=== PATIENT | female | born 1935 | race Caucasian/White ===

== ENCOUNTER → 2017-02-05 | Outpatient (CLI) | payer MEDICARE, OTHER ==
[~2017-02-05] MED LIST: ATOR1TAB21 PO; CALC600T27 PO; CYCL10TA PO; ICAPCAP PO; LISI40TAB PO; LORA10TA2 PO; PYRI100T2 PO; VITA10006 PO; VITA100066 PO
--- NOTE | 2017-02-05 10:15 | REPMRS ---
Patient History The patient states she had a clinical breast exam in November 2016. Patient is postmenopausal and has history of breast cancer at age 75. Malignant lumpectomy of the left breast, 2011. Radiation therapy of the left breast, 2010. Digital Mammo Screening Bilat: February 05, 2017 - Exam #: [id number] Bilateral CC and MLO view(s) were taken. Technologist: Iva Zaragoza, Technologist Prior study comparison: December 28, 2015, bilateral digital mammo screening bilat performed at [facility]. December 09, 2014, bilateral digital mammo screening bilat performed at [facility]. October 06, 2013, bilateral digital mammo screening bilat performed at [facility]. FINDINGS: The breast tissue is heterogeneously dense. This may lower the sensitivity of mammography. Nodular opacities previously noted in each breast are again seen and remain stable. There is a moderate amount of heterogeneously dense fibroglandular tissue which is fairly symmetric. There is no interval development of dominant mass, architectural distortion, or clustered microcalcification typical of malignancy. There has been no change in the appearance of the mammogram from the prior studies. ASSESSMENT: BI-RADS/ACR category 1 mammogram. Negative. Recommendation Routine screening mammogram of both breasts in 1 year (for women over age 40). This mammogram was interpreted with the aid of an FDA-approved computer-aided dectection system. Electronically Signed By: Peter Rucker MD 02/05/17 [id number]
== END ==
LOC: M RAD 09:30
PROVIDERS: ATTEND Nurse Practitioner Family
DX: Z12.31 Encounter for screening mammogram for malignant neoplasm of breast (principal); Z78.0 Asymptomatic menopausal state

== ENCOUNTER → 2017-05-31 | Outpatient (REF) | payer MEDICARE, OTHER ==
[2017-05-31 17:14] LABS: MEAN CORPUSCULAR HEMOGLOBIN 28.4 pg (27.0-33.0); MEAN CORPUSCULAR HGB CONC 32.1 g/dl (32.0-36.5); MEAN CORPUSCULAR VOLUME 88.7 fl (80.0-96.0); RED CELL DISTRIBUTION WIDTH 14.3 % (11.5-14.5); WHITE BLOOD COUNT 4.7 10^3/uL (4.0-10.0)
[2017-05-31 18:33] LABS: ALBUMIN 3.8 GM/DL (3.2-5.2); ALBUMIN/GLOBULIN RATIO 1.31 (1.00-1.93); BILIRUBIN,TOTAL 0.5 MG/DL (0.2-1.0); CREATININE FOR GFR 1.19 MG/DL (0.55-1.02); GLOMERULAR FILTRATION RATE 46.6 (>39); POTASSIUM SERUM 4.3 MEQ/L (3.5-5.1); TOTAL PROTEIN 6.7 GM/DL (6.4-8.2)
== END ==
LOC: M SFHCCLAY 10:28
PROVIDERS: ATTEND Nurse Practitioner Family
DX: I10 Essential (primary) hypertension (principal); K21.9 Gastro-esophageal reflux disease without esophagitis; E78.4 Other hyperlipidemia; E55.9 Vitamin D deficiency, unspecified

== ENCOUNTER 2017-06-29 11:40 | Emergency (ER) | payer MEDICARE, OTHER ==
[~2017-06-29] VITALS: Ht 172.7 cm; Wt 70.5 kg
[2017-06-29] MEDS ORDERED: OMEP40CA2 (12:05)
[2017-06-29 12:32] LABS: BASO % 0.5 % (0.0-1.0); EOS % 0.7 % (0.0-3.0); IMMATURE GRANULOCYTE % 0.2 % (0-0); LYMPH # 0.9 10^3/uL (1.5-4.5); LYMPH % 15.7 % (24.0-44.0); MEAN CORPUSCULAR HEMOGLOBIN 28.5 pg (27.0-33.0); MEAN CORPUSCULAR HGB CONC 32.8 g/dl (32.0-36.5); MEAN CORPUSCULAR VOLUME 86.8 fl (80.0-96.0); MONO # 0.4 10^3/uL (0.0-0.8); MONO % 7.2 % (0.0-5.0); NEUTROPHILS # 4.3 10^3/uL (1.8-7.7); NEUTROPHILS % 75.7 % (36.0-66.0); PLATELET COUNT, AUTOMATED 211 10^3/uL (150-450); RED CELL DISTRIBUTION WIDTH 14.6 % (11.5-14.5); WHITE BLOOD COUNT 5.7 10^3/uL (4.0-10.0)
--- NOTE | 2017-06-29 12:35 | REP ---
CT Head without contrast HISTORY: Fall COMPARISON: None Areas of decreased attenuation are present in the periventricular white matter. This represents small-vessel ischemic disease. There is no intraparenchymal hemorrhage, acute infarct, mass or midline shift. The ventricular system and cortical sulci are dilated consistent with minimal volume loss. There is no extracerebral collection. There is no extra cerebral collection. There is no fracture. The visualized sinuses are clear. IMPRESSION: 1. Small vessel ischemic disease. 2. Minimal volume loss. Signed by Dontae Esquivel MD 06/29/2017 12:27 P
[2017-06-29 12:54] LABS: CALCIUM LEVEL 9.5 MG/DL (8.8-10.2); CREATININE FOR GFR 1.15 MG/DL (0.55-1.02); GLOMERULAR FILTRATION RATE 48.5 (>39); POTASSIUM SERUM 3.9 MEQ/L (3.5-5.1)
--- NOTE | 2017-06-29 13:01 | REP ---
MAXILLOFACIAL CT WITHOUT CONTRAST: HISTORY: Fall. The sinuses are clear. The ostiomeatal units are patent. The middle and inferior nasal turbinates are partially paradoxical. The nasal septum is midline. The cribriform plate, medial rainey of the orbits and optic canals are intact. There is aeration of the left anterior clinoid process. The carotid canals form a segment of the posterolateral rainey of the sphenoid sinus. The sphenoid sinus septa insert into the internal carotid canal rainey. Degenerative change is present in the temporomandibular joints. There is no fracture. IMPRESSION: There is no acute or chronic sinusitis. Signed by Dontae Esquivel MD 06/29/2017 01:21 P
[2017-06-29 13:19] VITALS: BP 177/86
--- NOTE | 2017-06-30 08:29 | ECGEPIP ---
Stationary ECG Study [facility] - ED Test Date: 2017-06-29 Pat Name: CHRISTIANO GUY Department: Room: - Gender: F Publication Designer: issac : [id number] Requested By: TEOFILO Mendes Order Number: [id number] Reading MD: Andie Llamas Measurements Intervals [place] Rate: 78 P: -34 UT: 159 QRS: 28 QRSD: 87 T: 7 QT: 385 QTc: 439 Interpretive Statements SINUS RHYTHM POSSIBLE RIGHT VENTRICULAR CONDUCTION DELAY NSTTW ABNORMALITY INCREASED RATE 06/05/16 Electronically Signed On 06-30-2017 8:28:50 EST by Andie Llamas
== END 2017-06-29 13:20 | disposition home or self-care (01) ==
LOC: EDBD 11:40 → EDSEX 11:40 → M ED 11:40
DX: S00.81XA Abrasion of other part of head, initial encounter (principal); W01.0XXA Fall on same level from slipping, tripping and stumbling without subsequent striking against object, initial encounter; Y92.512 Supermarket, store or market as the place of occurrence of the external cause; Y93.89 Activity, other specified; Y99.8 Other external cause status; R90.82 White matter disease, unspecified; I10 Essential (primary) hypertension; E78.00 Pure hypercholesterolemia, unspecified; Z79.899 Other long term (current) drug therapy

== ENCOUNTER → 2017-08-31 | Outpatient (REF) | payer MEDICARE, OTHER | LOC: M SFHCCLAY 11:15 | DX: N39.0 Urinary tract infection, site not specified (principal) | CPT/HCPCS: 87186 ==

== ENCOUNTER → 2018-01-28 | Outpatient (REF) | payer MEDICARE, OTHER ==
[2018-01-28 17:44] LABS: ANION GAP 11 MEQ/L (8-16); BLOOD UREA NITROGEN 31 MG/DL (7-18); CALCIUM LEVEL 9.1 MG/DL (8.8-10.2); CARBON DIOXIDE LEVEL 26 MEQ/L (21-32); CHLORIDE LEVEL 106 MEQ/L (98-107); CREATININE FOR GFR 1.24 MG/DL (0.55-1.30); GLOMERULAR FILTRATION RATE 44.3 (>32); GLUCOSE, FASTING 91 MG/DL (70-100); POTASSIUM SERUM 4.8 MEQ/L (3.5-5.1); SODIUM LEVEL 143 MEQ/L (136-145)
== END ==
LOC: M SFHCCLAY 10:09
DX: I10 Essential (primary) hypertension (principal)
CPT/HCPCS: 80048

== ENCOUNTER → 2018-02-07 | Outpatient (CLI) | payer MEDICARE, OTHER | LOC: M RAD 08:55 | DX: Z12.31 Encounter for screening mammogram for malignant neoplasm of breast (principal); N63.11 Unspecified lump in the right breast, upper outer quadrant | CPT/HCPCS: 77067 ==

== ENCOUNTER → 2018-08-15 | Outpatient (REF) | payer MEDICARE, OTHER ==
[~2018-08-15] MED LIST changes: -LORA10TA2 PO; +LORA10TA3 PO; +OMEP40CA2
== END ==
LOC: M SFHCCLAY 14:33 → EEVIPCON 14:33
PROVIDERS: ATTEND Nurse Practitioner Family
DX: I10 Essential (primary) hypertension (principal); N39.0 Urinary tract infection, site not specified
CPT/HCPCS: 81002; 87088; 87186; G0463

== ENCOUNTER → 2019-01-01 | Outpatient (REF) | payer MEDICARE, OTHER ==
[~2019-01-01] MED LIST changes: +LISI40TA52 PO; -LISI40TAB PO
[2019-01-01 11:37] LABS: HEMATOCRIT 40.4 % (36.0-47.0); HEMOGLOBIN 12.8 g/dl (12.0-15.5); MEAN CORPUSCULAR HEMOGLOBIN 28.1 pg (27.0-33.0); MEAN CORPUSCULAR HGB CONC 31.7 g/dl (32.0-36.5); MEAN CORPUSCULAR VOLUME 88.6 fl (80.0-96.0); PLATELET COUNT, AUTOMATED 196 10^3/uL (150-450); RED BLOOD COUNT 4.56 10^6/uL (4.00-5.40); WHITE BLOOD COUNT 5.5 10^3/uL (4.0-10.0)
[2019-01-01 11:44] LABS: ALBUMIN 3.8 GM/DL (3.2-5.2); BILIRUBIN,TOTAL 0.6 MG/DL (0.2-1.0); CALCIUM LEVEL 8.9 MG/DL (8.8-10.2); CHOLESTEROL RISK RATIO 3.191 (<5); CREATININE FOR GFR 1.28 MG/DL (0.55-1.30); GLOMERULAR FILTRATION RATE 42.6 (>32); POTASSIUM SERUM 4.2 MEQ/L (3.5-5.1)
[2019-01-01 11:52] LABS: TOTAL 25(OH) VITAMIN D 33.9 NG/ML (30.0-100.0)
== END ==
LOC: M SFHCCLAY 08:22
PROVIDERS: ATTEND Nurse Practitioner Family
DX: I10 Essential (primary) hypertension (principal); E78.49 Other hyperlipidemia; E55.9 Vitamin D deficiency, unspecified; K21.9 Gastro-esophageal reflux disease without esophagitis
CPT/HCPCS: 69210; 80053; 80061; 82306; 85027; G0463

== ENCOUNTER → 2019-02-10 | Outpatient (CLI) | payer MEDICARE, OTHER ==
[~2019-02-10] MED LIST changes: -OMEP40CA2; +OMEP40CA97; -PYRI100T2 PO; +VITA100T82 PO
--- NOTE | 2019-02-10 11:50 | REPMRS ---
Patient History The patient states she had a clinical breast exam in January 2019.Malignant lumpectomy of the left breast, 2010. Radiation therapy of the left breast, 2010. 3D TOMOSYNTHESIS WAS PERFORMED. Digital Mammo Screening Bilat: February 10, 2019 - Exam #: [id number] Bilateral CC and MLO view(s) were taken. Technologist: Iva Zaragoza, Technologist Prior study comparison: February 07, 2018, bilateral digital mammo screening bilat performed at [facility]. February 05, 2017, bilateral digital mammo screening bilat performed at [facility]. FINDINGS: The breast tissue is heterogeneously dense. This may lower the sensitivity of mammography. There is no evidence of cancer on this mammogram. There is a stable nodule in each breast compared to multiple prior exams. No significant changes when compared with prior studies. Assessment: BI-RADS/ACR category 2 mammogram. Benign Findings. Recommendation Routine screening mammogram of both breasts in 1 year (for women over age 40). This mammogram was interpreted with the aid of an FDA-approved computer-aided dectection system. Electronically Signed By: Wu Butt MD 02/10/19 [id number]
== END ==
LOC: M RAD 11:01
PROVIDERS: ATTEND Nurse Practitioner Family
DX: Z12.31 Encounter for screening mammogram for malignant neoplasm of breast (principal)

== ENCOUNTER → 2019-05-12 | Outpatient (REF) | payer MEDICARE, OTHER ==
[~2019-05-12] MED LIST changes: +PYRI100T2 PO; -VITA100T82 PO
== END ==
LOC: M SFHCCLAY 11:11
PROVIDERS: ATTEND Family Medicine
DX: N39.0 Urinary tract infection, site not specified (principal)
CPT/HCPCS: 81002; 87088; 87186; G0463

== ENCOUNTER → 2019-08-29 | Outpatient (REF) | payer MEDICARE, OTHER ==
[~2019-08-29] MED LIST changes: -PYRI100T2 PO; +VITA100T82 PO
== END ==
LOC: M SFHCCLAY 11:16
PROVIDERS: ATTEND Nurse Practitioner Family
DX: R35.0 Frequency of micturition (principal)

== ENCOUNTER → 2019-09-12 | Outpatient (REF) | payer MEDICARE, OTHER ==
[2019-09-12 13:50] LABS: AMORPHOUS SEDIMENT SMALL (NEGATIVE); APPEARANCE, URINE HAZY (CLEAR); BACTERIA, URINE AUTO 1+ (NEGATIVE); BILIRUBIN, URINE AUTO NEGATIVE (NEGATIVE); BLOOD, URINE BLOOD NEGATIVE (NEGATIVE); COLOR, URINE YELLOW (YELLOW); GLUCOSE, URINE (UA) AUTO NEGATIVE (NEGATIVE); KETONE, URINE AUTO NEGATIVE (NEGATIVE); LEUKOCYTE ESTERASE, URINE AUTO TRACE (NEGATIVE); MUCUS, URINE SMALL (NEGATIVE); NITRITE, URINE AUTO NEGATIVE (NEGATIVE); PROTEIN, URINE AUTO NEGATIVE (NEGATIVE); RBC, URINE AUTO 1 /HPF (0-3); SPECIFIC GRAVITY URINE AUTO 1.018 (1.002-1.035); SQUAMOUS EPITHELIAL CELL UR AU 3 /HPF (0-6); TRANSITIONAL EPITHELIAL AUTO 1 /HPF; UROBILINOGEN, URINE AUTO 0.2 mg/dL (0.0-2.0); WBC, URINE AUTO 2 /HPF (0-3)
== END ==
LOC: M SMT 13:30
PROVIDERS: ATTEND Nurse Practitioner Women's Health
DX: N39.0 Urinary tract infection, site not specified (principal)

== ENCOUNTER → 2020-01-13 | Outpatient (REF) | payer MEDICARE, OTHER ==
[~2020-01-13] MED LIST changes: +CYCL-707 PO; -CYCL10TA PO
[2020-01-13 12:03] LABS: HEMATOCRIT 40.9 % (36.0-47.0); HEMOGLOBIN 13.1 g/dl (12.0-15.5); MEAN CORPUSCULAR HEMOGLOBIN 29.1 pg (27.0-33.0); MEAN CORPUSCULAR VOLUME 90.9 fl (80.0-96.0); PLATELET COUNT, AUTOMATED 187 10^3/uL (150-450); WHITE BLOOD COUNT 5.3 10^3/uL (4.0-10.0)
[2020-01-13 12:47] LABS: ALBUMIN 3.8 GM/DL (3.2-5.2); BILIRUBIN,TOTAL 0.5 MG/DL (0.2-1.0); CALCIUM LEVEL 8.9 MG/DL (8.8-10.2); CHOLESTEROL RISK RATIO 3.057 (<5); CREATININE FOR GFR 1.26 MG/DL (0.55-1.30); GLOMERULAR FILTRATION RATE 43.3 (>32); POTASSIUM SERUM 4.3 MEQ/L (3.5-5.1); TOTAL PROTEIN 6.5 GM/DL (6.4-8.2)
[2020-01-13 12:54] LABS: TOTAL 25(OH) VITAMIN D 40.4 NG/ML (30.0-100.0)
== END ==
LOC: M SFHCCLAY 08:05
PROVIDERS: ATTEND Nurse Practitioner Family
DX: K21.9 Gastro-esophageal reflux disease without esophagitis (principal); I10 Essential (primary) hypertension; E78.49 Other hyperlipidemia; E55.9 Vitamin D deficiency, unspecified

== ENCOUNTER → 2020-02-17 | Outpatient (CLI) | payer MEDICARE, OTHER ==
--- NOTE | 2020-02-17 15:20 | REPMRS ---
Patient History Malignant lumpectomy of the left breast, 2011. Radiation therapy of the left breast, 2010. VOLPARA DENSITY C. 3D TOMOSYNTHESIS WAS PERFORMED. Digital Woman Screen Mammo: February 17, 2020 - Exam #: [id number] Bilateral CC and MLO view(s) were taken. Technologist: Monika Maradiaga, Technologist Prior study comparison: February 10, 2019, bilateral digital mammo screening bilat, performed at [facility]. February 07, 2018, bilateral digital mammo screening bilat, performed at [facility]. FINDINGS: The breast tissue is heterogeneously dense. This may lower the sensitivity of mammography. There is a fairly symmetric fibroglandular pattern in both breasts. There has been no interval development of masses, areas of architectural distortion or clusters of microcalcifications typical of malignancy. No change in nodular opacity posteromedially on the left. No significant changes when compared with prior studies. Assessment: BI-RADS/ACR category 2 mammogram. Benign Findings. Recommendation Routine screening mammogram of both breasts in 1 year (for women over age 40). This mammogram was interpreted with the aid of an FDA-approved computer-aided dectection system. Electronically Signed By: Wu Butt MD 02/17/20 [id number]
--- NOTE | 2020-02-26 10:36 | DEXA ---
AP SPINE L1 - L4 1.271 0.8 2.6 LT FEMUR TOTAL 1.059 0.4 2.5 LT NECK 0.906 -1.0 1.3 RT FEMUR TOTAL 0.993 -0.1 2.0 RT NECK 0.855 -1.3 0.9 TOTAL BODY TOTAL OTHER COMMENTS: Normal bone densitometry of the spine. There is low bone density of hips. The increased density of the spine does represent a significant change. The increased density of the left hip does not represent significant change. The decreased density of the right hip does represent a significant change. The density of the spine has increased 7.0% since the initial exam on 12/01/2004. The increased 8.4% since the most recent exam on 11/04/2012. The density of the left hip has increased 1.7% since the initial exam on 12/01/2004. The density of the left hip has increased 1.0% since the most recent exam on 11/04/2012. The density of the right hip has increased 0.5% since the initial exam on 12/01/2004. The density of the right hip has decreased 2.5% since the most recent exam on 11/04/2012. FOLLOW-UP: Recommendation for the next bone density exam: 2 years. COSME
== END ==
LOC: M WHC 12:59
PROVIDERS: ATTEND Nurse Practitioner Family
DX: Z12.31 Encounter for screening mammogram for malignant neoplasm of breast (principal); Z78.0 Asymptomatic menopausal state

== ENCOUNTER → 2020-11-24 | Outpatient (REF) | payer MEDICARE, OTHER ==
[2020-11-24 11:52] LABS: HEMATOCRIT 42.5 % (36.0-47.0); HEMOGLOBIN 13.5 g/dl (12.0-15.5); MEAN CORPUSCULAR HGB CONC 31.8 g/dl (32.0-36.5); MEAN CORPUSCULAR VOLUME 91.4 fl (80.0-96.0); PLATELET COUNT, AUTOMATED 209 10^3/uL (150-450); RED BLOOD COUNT 4.65 10^6/uL (4.00-5.40); WHITE BLOOD COUNT 6.1 10^3/uL (4.0-10.0)
[2020-11-24 14:01] LABS: ALBUMIN 3.8 GM/DL (3.2-5.2); BILIRUBIN,TOTAL 0.5 MG/DL (0.2-1.0); CALCIUM LEVEL 9.7 MG/DL (8.8-10.2); CHOLESTEROL RISK RATIO 3.469 (<5); CREATININE FOR GFR 1.26 MG/DL (0.55-1.30); GLOMERULAR FILTRATION RATE 43.2 (>32); TOTAL 25(OH) VITAMIN D 36.9 NG/ML (30.0-100.0); TOTAL PROTEIN 6.8 GM/DL (6.4-8.2)
== END ==
LOC: M SFHCCLAY 08:05
PROVIDERS: ATTEND Nurse Practitioner Family
DX: E78.5 Hyperlipidemia, unspecified (principal); I10 Essential (primary) hypertension; E55.9 Vitamin D deficiency, unspecified

== ENCOUNTER → 2021-02-17 | Outpatient (CLI) | payer MEDICARE, OTHER ==
[~2021-02-17] MED LIST changes: +OMEP40CA4; -OMEP40CA97
--- NOTE | 2021-02-17 13:56 | REPMRS ---
Patient History The patient states she has not had a clinical breast exam in over a year. Malignant lumpectomy of the left breast, 2010. Radiation therapy of the left breast, 2010. Patient states no breast complaints today. Patient has signed MRS History Sheet. Digital Woman Screen Mammo: February 17, 2021 - Exam #: [id number] Bilateral CC and MLO view(s) were taken. Technologist: Halina Fairbanks, Technologist Prior study comparison: February 17, 2020, bilateral digital woman screen mammo performed at [facility] and [facility] [place]. February 10, 2019, bilateral digital mammo screening bilat, performed at [facility]. February 07, 2018, bilateral digital mammo screening bilat, performed at [facility]. FINDINGS: The breast tissue is heterogeneously dense. This may lower the sensitivity of mammography. The Volpara volumetric breast density category is: C. There is a well-circumscribed 2.4 cm mass in the left breast superiorly and medially along with chronic contour change. These are stable post treatment changes in the left breast post lumpectomy and radiation therapy. There is a smaller stable nodule in the upper outer quadrant of the right breast consistent with intramammary lymph node. This is unchanged from multiple prior studies as well. There is a moderate amount of heterogeneously dense fibroglandular tissue which is fairly symmetric. There is no interval development of dominant mass, architectural distortion, or grouped microcalcification typical of malignancy. There has been no change in the appearance of the mammogram from the prior studies. 3-D tomosynthesis shows no additional findings. Assessment: BI-RADS/ACR category 2 mammogram. Benign Findings. Recommendation Routine screening mammogram of both breasts in 1 year (for women over age 40). This mammogram was interpreted with the aid of an FDA-approved computer-aided dectection system. Electronically Signed By: Peter Rucker MD 02/17/21 [id number]
== END ==
LOC: M WHC 12:39
PROVIDERS: ATTEND Nurse Practitioner Family
DX: Z12.31 Encounter for screening mammogram for malignant neoplasm of breast (principal); Z85.3 Personal history of malignant neoplasm of breast; Z92.3 Personal history of irradiation; N63.20 Unspecified lump in the left breast, unspecified quadrant

== ENCOUNTER → 2021-07-04 | Outpatient (REF) | payer MEDICARE, OTHER ==
[2021-07-05 11:23] LABS: BASO # 0.1 10^3/uL (0.0-0.2); BASO % 0.9 % (0.0-1.0); EOS # 0.1 10^3/uL (0.0-0.5); EOS % 1.5 % (0.0-3.0); HEMOGLOBIN 13.7 g/dl (12.0-15.5); LYMPH # 1.5 10^3/uL (1.5-5.0); LYMPH % 22.5 % (24.0-44.0); MEAN CORPUSCULAR HEMOGLOBIN 28.5 pg (27.0-33.0); MEAN CORPUSCULAR HGB CONC 31.9 g/dl (32.0-36.5); MEAN CORPUSCULAR VOLUME 89.6 fl (80.0-96.0); MONO # 0.6 10^3/uL (0.0-0.8); NEUTROPHILS # 4.5 10^3/uL (1.5-8.5); NEUTROPHILS % 65.8 % (36.0-66.0); PLATELET COUNT, AUTOMATED 203 10^3/uL (150-450); WHITE BLOOD COUNT 6.8 10^3/uL (4.0-10.0)
[2021-07-05 12:05] LABS: ALBUMIN 3.9 GM/DL (3.2-5.2); BILIRUBIN,TOTAL 0.7 MG/DL (0.2-1.0); CALCIUM LEVEL 9.7 MG/DL (8.8-10.2); CHOLESTEROL RISK RATIO 3.977 (<5); CREATININE FOR GFR 1.24 MG/DL (0.55-1.30); FREE T4 1.04 NG/DL (0.76-1.46); POTASSIUM SERUM 5.8 MEQ/L (3.5-5.1); THYROID STIMULATING HORMONE 1.08 uIU/ML (0.358-3.740); TOTAL PROTEIN 7.1 GM/DL (6.4-8.2)
== END ==
LOC: M SFHCCLAY 14:03
PROVIDERS: ATTEND Nurse Practitioner Family
DX: E78.49 Other hyperlipidemia (principal); I10 Essential (primary) hypertension; E55.9 Vitamin D deficiency, unspecified; K58.0 Irritable bowel syndrome with diarrhea; H61.23 Impacted cerumen, bilateral
CPT/HCPCS: 69210; 80053; 80061; 84439; 84443; 85025; G0463

== ENCOUNTER → 2022-01-03 | Outpatient (REF) | payer MEDICARE, OTHER ==
[2022-01-03 17:28] LABS: BASO # 0.1 10^3/uL (0.0-0.2); BASO % 0.8 % (0.0-1.0); EOS # 0.2 10^3/uL (0.0-0.5); EOS % 2.6 % (0.0-3.0); HEMATOCRIT 41.6 % (36.0-47.0); HEMOGLOBIN 13.4 g/dl (12.0-15.5); LYMPH # 1.7 10^3/uL (1.5-5.0); LYMPH % 25.2 % (24.0-44.0); MEAN CORPUSCULAR HEMOGLOBIN 29.4 pg (27.0-33.0); MEAN CORPUSCULAR HGB CONC 32.2 g/dl (32.0-36.5); MEAN CORPUSCULAR VOLUME 91.2 fl (80.0-96.0); MONO # 0.7 10^3/uL (0.0-0.8); MONO % 10.2 % (2.0-8.0); NEUTROPHILS % 60.9 % (36.0-66.0); PLATELET COUNT, AUTOMATED 197 10^3/uL (150-450); RED BLOOD COUNT 4.56 10^6/uL (4.00-5.40); WHITE BLOOD COUNT 6.6 10^3/uL (4.0-10.0)
[2022-01-03 17:54] LABS: ALBUMIN 3.9 GM/DL (3.2-5.2); BILIRUBIN,TOTAL 0.5 MG/DL (0.2-1.0); CALCIUM LEVEL 9.6 MG/DL (8.8-10.2); CREATININE FOR GFR 1.13 MG/DL (0.55-1.30); FREE T4 0.97 NG/DL (0.76-1.46); GLOMERULAR FILTRATION RATE 48.8 (>32); PERCENT SATURATION 20.1 % (13.2-45.0); POTASSIUM SERUM 4.3 MEQ/L (3.5-5.1); THYROID STIMULATING HORMONE 1.79 uIU/ML (0.358-3.740); TOTAL PROTEIN 6.9 GM/DL (6.4-8.2)
== END ==
LOC: M SFHCCLAY 11:17
PROVIDERS: ATTEND Nurse Practitioner Family
DX: E78.49 Other hyperlipidemia (principal); I10 Essential (primary) hypertension; E55.9 Vitamin D deficiency, unspecified; K58.0 Irritable bowel syndrome with diarrhea; L65.9 Nonscarring hair loss, unspecified

== ENCOUNTER → 2022-04-28 | Outpatient (CLI) | payer MEDICARE, OTHER | LOC: M WHC 14:53 | PROVIDERS: ATTEND Nurse Practitioner Family | DX: Z12.31 Encounter for screening mammogram for malignant neoplasm of breast (principal); Z85.3 Personal history of malignant neoplasm of breast ==

== ENCOUNTER → 2022-05-24 | Outpatient (REF) | payer MEDICARE, OTHER ==
[2022-05-24 18:31] LABS: BASO # 0.1 10^3/uL (0.0-0.2); BASO % 0.9 % (0.0-1.0); EOS # 0.1 10^3/uL (0.0-0.5); EOS % 2.1 % (0.0-3.0); HEMATOCRIT 39.9 % (36.0-47.0); LYMPH # 1.7 10^3/uL (1.5-5.0); LYMPH % 24.2 % (24.0-44.0); MEAN CORPUSCULAR HEMOGLOBIN 29.7 pg (27.0-33.0); MEAN CORPUSCULAR HGB CONC 32.6 g/dl (32.0-36.5); MEAN CORPUSCULAR VOLUME 91.1 fl (80.0-96.0); MONO # 0.7 10^3/uL (0.0-0.8); MONO % 10.7 % (2.0-8.0); NEUTROPHILS # 4.2 10^3/uL (1.5-8.5); NEUTROPHILS % 61.7 % (36.0-66.0); PLATELET COUNT, AUTOMATED 193 10^3/uL (150-450); RED BLOOD COUNT 4.38 10^6/uL (4.00-5.40); WHITE BLOOD COUNT 6.8 10^3/uL (4.0-10.0)
[2022-05-24 19:01] LABS: ALBUMIN 3.5 GM/DL (3.2-5.2); BILIRUBIN,TOTAL 0.5 MG/DL (0.2-1.0); CALCIUM LEVEL 8.9 MG/DL (8.8-10.2); CREATININE FOR GFR 1.21 MG/DL (0.55-1.30); GLOMERULAR FILTRATION RATE 45.1 (>32); POTASSIUM SERUM 4.7 MEQ/L (3.5-5.1); TOTAL PROTEIN 6.5 GM/DL (6.4-8.2)
== END ==
LOC: M SFHCCLAY 10:54
PROVIDERS: ATTEND Nurse Practitioner Family
DX: I12.9 Hypertensive chronic kidney disease with stage 1 through stage 4 chronic kidney disease, or unspecified chronic kidney disease (principal); N18.32 Chronic kidney disease, stage 3b

== ENCOUNTER → 2022-06-15 | Outpatient (CLI) | payer MEDICARE, OTHER | LOC: M CARPUL 08:02 | PROVIDERS: ATTEND Nurse Practitioner Family | DX: N13.30 Unspecified hydronephrosis (principal); I70.0 Atherosclerosis of aorta; I27.20 Pulmonary hypertension, unspecified; I10 Essential (primary) hypertension ==

== ENCOUNTER → 2022-09-25 | Outpatient (CLI) | payer MEDICARE, OTHER | LOC: M RAD 10:24 | PROVIDERS: ATTEND Internal Medicine Cardiovascular Disease | DX: R20.8 Other disturbances of skin sensation (principal) ==

== ENCOUNTER → 2023-05-16 | Outpatient (CLI) | payer MEDICARE, OTHER | LOC: M WHC 13:35 | PROVIDERS: ATTEND Nurse Practitioner Family | DX: Z12.31 Encounter for screening mammogram for malignant neoplasm of breast (principal) ==

== ENCOUNTER → 2023-08-02 | Outpatient (REF) | payer MEDICARE, OTHER ==
[2023-08-02 18:31] LABS: CREATININE FOR GFR 1.47 MG/DL (0.55-1.30); GLOMERULAR FILTRATION RATE 35.9 (>32)
== END ==
LOC: M LABDRAWC 16:52
PROVIDERS: ATTEND Physician Assistant
DX: M47.896 Other spondylosis, lumbar region (principal); M51.36 Other intervertebral disc degeneration, lumbar region; M54.50 Low back pain, unspecified

== ENCOUNTER → 2023-11-06 | Outpatient (REF) | payer MEDICARE, OTHER ==
[2023-11-06 18:55] LABS: BASO # 0.1 10^3/uL (0.0-0.2); BASO % 0.8 % (0.0-1.0); EOS # 0.1 10^3/uL (0.0-0.5); EOS % 2.2 % (0.0-3.0); HEMATOCRIT 42.8 % (36.0-47.0); HEMOGLOBIN 13.8 g/dl (12.0-15.5); LYMPH # 1.3 10^3/uL (1.5-5.0); LYMPH % 20.7 % (24.0-44.0); MEAN CORPUSCULAR HEMOGLOBIN 29.1 pg (27.0-33.0); MEAN CORPUSCULAR HGB CONC 32.2 g/dl (32.0-36.5); MEAN CORPUSCULAR VOLUME 90.3 fl (80.0-96.0); MONO # 0.7 10^3/uL (0.0-0.8); NEUTROPHILS # 4.2 10^3/uL (1.5-8.5); NEUTROPHILS % 64.8 % (36.0-66.0); PLATELET COUNT, AUTOMATED 192 10^3/uL (150-450); RED BLOOD COUNT 4.74 10^6/uL (4.00-5.40); WHITE BLOOD COUNT 6.4 10^3/uL (4.0-10.0)
[2023-11-06 19:26] LABS: ALBUMIN 3.7 G/DL (3.2-5.2); BILIRUBIN,TOTAL 0.7 MG/DL (0.3-1.2); CALCIUM LEVEL 9.6 MG/DL (8.3-10.6); CHOLESTEROL RISK RATIO 3.49 (<5); CREATININE FOR GFR 1.4 MG/DL (0.55-1.30); HDL CHOLESTEROL 38.3 MG/DL (>40); LDL CHOLESTEROL 71.9 MG/DL (<100); NON-HDL-C 95.7 MG/DL; POTASSIUM SERUM 4.6 MMOL/L (3.5-5.1); TOTAL PROTEIN 6.6 G/DL (5.7-8.2)
[2023-11-06 19:27] LABS: FREE T4 1.12 NG/DL (0.89-1.76); THYROID STIMULATING HORMONE 1.994 uIU/ML (0.55-4.78)
== END ==
LOC: M SFHCCLAY 10:04
PROVIDERS: ATTEND Nurse Practitioner Family
DX: I12.9 Hypertensive chronic kidney disease with stage 1 through stage 4 chronic kidney disease, or unspecified chronic kidney disease (principal); E78.5 Hyperlipidemia, unspecified; L65.9 Nonscarring hair loss, unspecified; E55.9 Vitamin D deficiency, unspecified; K58.0 Irritable bowel syndrome with diarrhea

== ENCOUNTER → 2023-11-14 | Outpatient (REF) | payer MEDICARE, OTHER ==
[2023-11-14 13:43] LABS: CREATININE FOR GFR 1.34 MG/DL (0.55-1.30); GLOMERULAR FILTRATION RATE 39.9 (>32); POTASSIUM SERUM 4.1 MMOL/L (3.5-5.1)
== END ==
LOC: M SFHCCLAY 08:49
PROVIDERS: ATTEND Nurse Practitioner Family
DX: I10 Essential (primary) hypertension (principal)

== ENCOUNTER → 2023-12-06 | Outpatient (CLI) | payer MEDICARE, OTHER ==
[~2023-12-06] MED LIST changes: +PROHANCE 279.3MG/ML 15ML VIAL As Ordered ONE
== END ==
LOC: M RAD 10:19
PROVIDERS: ATTEND Nurse Practitioner Family
DX: K86.2 Cyst of pancreas (principal); N28.1 Cyst of kidney, acquired; N60.02 Solitary cyst of left breast
CPT/HCPCS: 74183; A9576

== ENCOUNTER → 2024-01-18 | Outpatient (REF) | payer MEDICARE, OTHER ==
[~2024-01-18] MED LIST changes: -PROHANCE 279.3MG/ML 15ML VIAL As Ordered ONE
[2024-01-20 03:37] LABS: PROTEIN, TOTAL SO 6.7 g/dL (6.1-8.1)
[2024-01-22 05:32] LABS: ALBUMIN SO 4.1 g/dL (3.8-4.8); ALPHA 1 GLOBULINS SO 0.2 g/dL (0.2-0.3); ALPHA 2 GLOBULINS SO 0.8 g/dL (0.5-0.9); BETA 2 GLOBULIN SO 0.4 g/dL (0.2-0.5); BETA GLOBULIN SO 0.4 g/dL (0.4-0.6); GAMMA GLOBULINS SO 0.8 g/dL (0.8-1.7)
== END ==
LOC: M LAB REF 17:04
PROVIDERS: ATTEND Internal Medicine Nephrology
DX: N30.00 Acute cystitis without hematuria (principal); N18.32 Chronic kidney disease, stage 3b

== ENCOUNTER → 2024-05-23 | Outpatient (CLI) | payer MEDICARE, OTHER | LOC: M WHC 12:25 | PROVIDERS: ATTEND Nurse Practitioner Family | DX: Z12.31 Encounter for screening mammogram for malignant neoplasm of breast (principal) ==

== ENCOUNTER → 2024-09-18 | Outpatient (REF) | payer MEDICARE, OTHER | LOC: M SFHCCLAY 11:04 | PROVIDERS: ATTEND Nurse Practitioner Family | DX: R30.0 Dysuria (principal) ==

== ENCOUNTER → 2025-05-05 | Outpatient (REF) | payer MEDICARE, OTHER ==
[2025-05-05 18:45] LABS: BACTERIA, URINE AUTO 1+ (NEGATIVE); MUCUS, URINE SMALL (NEGATIVE); RBC, URINE AUTO 1 /HPF (0-3); SQUAMOUS EPITHELIAL CELL UR AU 6 /HPF (0-6); WBC, URINE AUTO 39 /HPF (0-3)
[2025-05-05 19:17] LABS: TOTAL PROTEIN,RANDOM URINE 18.8 MG/DL (0.0-14.0)
== END ==
LOC: M LAB REF 17:37
PROVIDERS: ATTEND Internal Medicine Nephrology
DX: N30.00 Acute cystitis without hematuria (principal); N18.32 Chronic kidney disease, stage 3b

== ENCOUNTER → 2025-05-12 | Outpatient (CLI) | payer MEDICARE, OTHER | LOC: M CLY 11:14 | PROVIDERS: ATTEND Nurse Practitioner Family | DX: R06.02 Shortness of breath (principal) ==

== ENCOUNTER → 2025-05-12 | Outpatient (REF) | payer MEDICARE, OTHER ==
[2025-05-12 18:42] LABS: BASO # 0.1 10^3/uL (0.0-0.2); BASO % 0.8 % (0.0-1.0); EOS # 0.2 10^3/uL (0.0-0.5); EOS % 1.8 % (0.0-3.0); LYMPH # 1.9 10^3/uL (1.5-5.0); LYMPH % 22.0 % (24.0-44.0); MONO # 0.9 10^3/uL (0.0-0.8); MONO % 9.7 % (2.0-8.0); NEUTROPHILS # 5.7 10^3/uL (1.5-8.5); NEUTROPHILS % 65.2 % (36.0-66.0); PLATELET COUNT, AUTOMATED 231 10^3/uL (150-450)
[2025-05-12 18:45] LABS: FREE T4 1.25 NG/DL (0.89-1.76)
[2025-05-12 18:47] LABS: ALT/SGPT 24.0 U/L (7.0-40); AST/SGOT 19.0 U/L (<34); CALCIUM LEVEL 9.7 MG/DL (8.3-10.6); CARBON DIOXIDE LEVEL 26.0 MMOL/L (20-31); CHLORIDE LEVEL 105.0 MMOL/L (98-107); CHOLESTEROL LEVEL 128.0 MG/DL (<200); CHOLESTEROL RISK RATIO 3.11 (<5); CREATININE FOR GFR 1.64 MG/DL (0.55-1.30); GLOMERULAR FILTRATION RATE 30.1 (>32); LDL CHOLESTEROL 71.3 MG/DL (<100); NON-HDL-C 86.9 MG/DL; POTASSIUM SERUM 4.3 MMOL/L (3.5-5.1); SODIUM LEVEL 139.0 MMOL/L (136-145); TRIGLYCERIDES LEVEL 78.0 MG/DL (<150)
[2025-05-12 18:48] LABS: TOTAL 25(OH) VITAMIN D 55.8 NG/ML (20.0-100.0)
== END ==
LOC: M SFHCCLAY 10:50
PROVIDERS: ATTEND Nurse Practitioner Family
DX: I10 Essential (primary) hypertension (principal); N18.32 Chronic kidney disease, stage 3b; E78.5 Hyperlipidemia, unspecified; K58.0 Irritable bowel syndrome with diarrhea; E55.9 Vitamin D deficiency, unspecified

== ENCOUNTER → 2025-05-28 | Outpatient (CLI) | payer MEDICARE, OTHER | LOC: M WHC 12:23 | PROVIDERS: ATTEND Nurse Practitioner Family | DX: Z12.31 Encounter for screening mammogram for malignant neoplasm of breast (principal) ==

== ENCOUNTER 2025-06-10 14:54 | Emergency (ER) | payer MEDICARE, OTHER ==
[~2025-06-10] VITALS: Ht 172.7 cm; Wt 75.9 kg
[2025-06-10] MEDS ORDERED: OMEGCAP9 PO (15:16)
[2025-06-10] MEDS ORDERED: METO37.5 PO (15:16)
[2025-06-10] MEDS ORDERED: SPIR-10 PO (15:16)
[2025-06-10] MEDS ORDERED: METH-1164 PO (15:16)
[2025-06-10] MEDS ORDERED: ATOR1TAB19 PO (15:16)
[2025-06-10] MEDS ORDERED: FAMO10TA50 PO (15:16)
[2025-06-10] MEDS ORDERED: CHOLPOW (15:16)
[2025-06-10] MEDS ORDERED: CHLO25TA PO (15:16)
[2025-06-10] MEDS ORDERED: ZYRTTAB8 PO (15:16)
[2025-06-10 15:38] LABS: BASO # 0.1 10^3/uL (0.0-0.2); BASO % 0.7 % (0.0-1.0); EOS # 0.1 10^3/uL (0.0-0.5); EOS % 0.6 % (0.0-3.0); LYMPH # 1.4 10^3/uL (1.5-5.0); LYMPH % 17.6 % (24.0-44.0); MONO # 0.6 10^3/uL (0.0-0.8); MONO % 7.4 % (2.0-8.0); NEUTROPHILS # 6.0 10^3/uL (1.5-8.5); NEUTROPHILS % 73.3 % (36.0-66.0); PLATELET COUNT, AUTOMATED 214 10^3/uL (150-450)
[2025-06-10 16:06] LABS: CALCIUM LEVEL 9.8 MG/DL (8.3-10.6); CARBON DIOXIDE LEVEL 27 MMOL/L (20-31); CHLORIDE LEVEL 104 MMOL/L (98-107); CK-MB VALUE MASS < 1.0 NG/ML (<3.6); CPK CREATINE PHOSPHOKINASE 41 U/L (34-145); CREATININE FOR GFR 1.70 MG/DL (0.55-1.30); GLOMERULAR FILTRATION RATE 28.8 (>32); POTASSIUM SERUM 4.7 MMOL/L (3.5-5.1); SODIUM LEVEL 142 MMOL/L (136-145)
[2025-06-10 16:56] LABS: CK-MB VALUE MASS < 1.0 NG/ML (<3.6)
[2025-06-10 16:57] LABS: CPK CREATINE PHOSPHOKINASE 34 U/L (34-145)
[2025-06-10] MEDS: ASPIRIN 81 MG CHEWABLE TABLET PO ONE (18:05)
[2025-06-10 19:50] VITALS: BP 148/69; TEMP 97.5; O2SAT 95
== END 2025-06-10 19:50 | disposition home or self-care (01) ==
LOC: M ED 14:54 → EDBD 14:54 → M ED 19:50
DX: R07.9 Chest pain, unspecified (principal); I10 Essential (primary) hypertension; I35.8 Other nonrheumatic aortic valve disorders; K21.9 Gastro-esophageal reflux disease without esophagitis; K58.9 Irritable bowel syndrome, unspecified; Z91.041 Radiographic dye allergy status; Z79.899 Other long term (current) drug therapy
CPT/HCPCS: 36415; 71045; 71250; 80048; 82550; 82553; 84484; 85025; 93000; 93005; 93041; 94760; 99285; G0404; G0463

== ENCOUNTER → 2025-07-15 | Outpatient (CLI) | payer MEDICARE, OTHER ==
[~2025-07-15] MED LIST changes: +ATOR1TAB19 PO; +CHLO25TA PO; +CHOLPOW; +FAMO10TA50 PO; +METH-1164 PO; +METO37.5 PO; +OMEGCAP9 PO; +SPIR-10 PO; +ZYRTTAB8 PO
== END ==
LOC: M CARPUL 12:53
PROVIDERS: ATTEND Nurse Practitioner Family
DX: I35.8 Other nonrheumatic aortic valve disorders (principal)